=== PATIENT | female | born 1940 | race Caucasian/White ===

== ENCOUNTER 2021-05-03 13:53 | Outpatient (CLI) | payer MEDICARE, MEDICAID | END 2021-05-03 13:54 | disposition home or self-care (01) | LOC: CSHMRI 13:53 | PROVIDERS: ATTEND Orthopaedic Surgery | DX: M25.512 Pain in left shoulder (principal); M62.89 Other specified disorders of muscle; S43.432A Superior glenoid labrum lesion of left shoulder, initial encounter; M25.812 Other specified joint disorders, left shoulder ==